=== PATIENT | female | born 1965 | race African-American/Black ===

== ENCOUNTER 2017-12-10 13:20 | Emergency (ER) | payer OTHER ==
[~2017-12-10] VITALS: Ht 162.6 cm; Wt 83.9 kg
[2017-12-10 14:54] LABS: HEMATOCRIT 37.8 % (37.0-47.0); HEMOGLOBIN 12.4 gm/dL (12.0-15.0); MCH 24.2 pg (26.0-34.0); MCHC 32.7 g/dL (28.0-37.0); MCV 73.9 fL (80.0-100.0); PLATELET COUNT 281 thou/uL (150-400); RBC 5.12 mil/uL (4.20-5.00); RDW 15.1 % (10.5-14.5)
[2017-12-10 15:01] LABS: CALCIUM 9.6 mg/dL (8.5-10.1); CREATININE 0.7 mg/dL (0.6-1.0); POTASSIUM 3.5 mmol/L (3.5-5.1)
[2017-12-10 15:15] LABS: ABSOLUTE NEUTROPHILS 5.3 thou/uL (1.4-8.2); ANISOCYTOSIS 1+; MICROCYTES 1+
[2017-12-10 15:16] LABS: TARGET CELLS OCCASIONAL
[2017-12-10] MEDS ORDERED: ULTRAM 50MG TAB50 MG PO (17:58)
[2017-12-10 19:05] VITALS: BP 130/91
== END 2017-12-10 19:05 | disposition home or self-care (01) ==
LOC: ER 13:20
PROVIDERS: Emergency Medicine
DX: R51 Headache (principal); R42 Dizziness and giddiness; F17.210 Nicotine dependence, cigarettes, uncomplicated

== ENCOUNTER 2018-09-12 22:39 | Emergency (ER) | payer OTHER ==
[~2018-09-12] VITALS: Ht 162.6 cm; Wt 90.7 kg
[~2018-09-12 22:39] MED LIST: ULTRAM 50MG TAB50 MG PO
[2018-09-12] MEDS ORDERED: HYDROCHLOROTHIA25 M1 PO (22:51)
[2018-09-12] MEDS ORDERED: LISINOPRIL40 MG PO (22:51)
[2018-09-12] MEDS ORDERED: IBUPROFEN 400400 M2 PO (22:52)
[2018-09-13 00:02] VITALS: BP 189/89
== END 2018-09-13 00:03 | disposition home or self-care (01) ==
LOC: ER 22:39
DX: S62.511A Displaced fracture of proximal phalanx of right thumb, initial encounter for closed fracture (principal); I10 Essential (primary) hypertension; F17.210 Nicotine dependence, cigarettes, uncomplicated; W00.0XXA Fall on same level due to ice and snow, initial encounter; Y93.89 Activity, other specified; Y92.59 Other trade areas as the place of occurrence of the external cause; Y99.8 Other external cause status